=== PATIENT | male | born 1975 | race Two or more races ===

== ENCOUNTER 2017-09-06 00:54 | Emergency (ER) | payer OTHER ==
[2017-09-06 01:04] VITALS: BP 156/102; PULSE 84; RESP 16; TEMP 97.9; O2SAT 95
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
[2017-09-06] MEDS ORDERED: PROPARACAINE 0.5% 15 ML OPHT DROP ONE (01:06)
[2017-09-06] MEDS ORDERED: PROPARACAINE 0.5% 15 ML OPHT DROP EACHEYE ONE (01:20)
== END 2017-09-06 01:57 | disposition home or self-care (01) ==
DX: Z77.098 Contact with and (suspected) exposure to other hazardous, chiefly nonmedicinal, chemicals (principal)